=== PATIENT | male | born 1955 | race African-American/Black ===

== ENCOUNTER 2017-08-26 08:31 | Inpatient (IN) | payer OTHER ==
[~2017-08-26] VITALS: Ht 170.2 cm; Wt 74.2 kg
[~2017-08-26 08:31] MED LIST: ASPI-556 PO; FLUT1DIS IH; LOVA20TA3 PO; MONT10TA21 PO; MULT-1259 PO; SIMV-260 PO; TIOT185 IH
[2017-08-26] MEDS ORDERED: SIME80 PO (08:53)
[2017-08-26] MEDS ORDERED: IPRA4AER IH (09:01)
[2017-08-26] MEDS ORDERED: OMEP20 PO (09:01)
[2017-08-26] MEDS ORDERED: FLUT16H NASAL (09:01)
[2017-08-26] MEDS ORDERED: ONDA4 PO (09:01)
[2017-08-26] MEDS ORDERED: D-ME118S13 PO (09:01)
[2017-08-26] MEDS ORDERED: ATOR20TA86 PO (09:01)
[2017-08-26] MEDS ORDERED: FLUT1AER5 IH (09:01)
[2017-08-26 09:38] LABS: BASOPHILS % (AUTO) 0.6 % (0.0-2.0); EOSINOPHILS % (AUTO) 0.9 % (1.0-6.0); HEMATOCRIT 41.4 % (41-53); HEMOGLOBIN 13.7 g/dL (13.5-17.5); LYMPHOCYTES % (AUTO) 9.7 % (22.0-44.0); MEAN CORPUSCULAR HEMOGLOBIN 28.1 pg (26.0-34.0); MEAN CORPUSCULAR HGB CONC 33.1 G/dL (31.0-37.0); MEAN CORPUSCULAR VOLUME 85 fL (80-100); MONOCYTES # (AUTO) 0.5 K/uL (0.1-1.0); MONOCYTES % (AUTO) 5.2 % (2.0-9.0); NEUTROPHILS # (AUTO) 8.6 K/uL (1.8-7.7); NEUTROPHILS % (AUTO) 83.6 % (40.0-70.0); PLATELET COUNT (AUTO) 210 K/uL (150-450); RED BLOOD CELL COUNT(AUTO) 4.87 MIL/uL (4.50-5.90); RED CELL DISTRIBUTION WIDTH 16.6 % (11.5-14.5)
[2017-08-26 09:39] LABS: ANION GAP 5 mmol/L (8-16); CALCIUM, TOTAL 8.9 mg/dL (8.8-10.5); CARBON DIOXIDE 30 mmol/L (22-29); CHLORIDE 103 mmol/L (98-107); CREATININE 0.97 mg/dL (0.60-1.30); GLOMERULAR FILTR. RATE CALC > 60 mL/min (>60); GLUCOSE,RANDOM 98 mg/dL (70-110); POTASSIUM 4.2 mmol/L (3.5-5.1); SODIUM SERUM 138 mmol/L (136-145); UREA NITROGEN, BLOOD 8 mg/dL (7-18)
[2017-08-26 09:58] LABS: B-TYPE NATRIURETIC PEPTIDE 27 pg/mL (0-100)
[2017-08-26 10:03] LABS: ALANINE AMINOTRANSFERASE 23 U/L (12-78); ALBUMIN 3.5 g/dL (3.4-5.0); ALKALINE PHOSPHATASE 91 U/L (46-116); ASPARTATE AMINOTRANSFERASE 16 U/L (15-37); BILIRUBIN,TOTAL 0.2 mg/dL (0.1-1.0); CREATINE KINASE MB 1.1 ng/mL (0-5); CREATINE KINASE, TOTAL 82 U/L (39-308); TOTAL PROTEIN, SERUM 7.1 g/dL (6.4-8.2)
[2017-08-26] MEDS ORDERED: ONDANSETRON HCL 4 MG/2 ML VIAL IVP PRN ×2 (13:00→14:30)
[2017-08-26] MEDS ORDERED: ACETAMINOPHEN 325 MG TABLET PO PRN (13:00)
[2017-08-26 13:19] LABS: APPEARANCE,URINE CLEAR (CLEAR); BILIRUBIN,URINE NEGATIVE (NEGATIVE); GLUCOSE, URINE (UA) NEGATIVE (NEGATIVE); KETONES,URINE NEGATIVE (NEGATIVE); LEUKOCYTE ESTERASE ,URINE NEGATIVE (NEGATIVE); NITRATE,URINE NEGATIVE (NEGATIVE); PROTEIN,URINE NEGATIVE (NEGATIVE); UROBILINOGEN,URINE 0.2 mg/dL (<=1.0)
[2017-08-26 13:27] LABS: OCCULT BLOOD,URINE NEGATIVE (NEGATIVE)
[2017-08-26] MEDS ORDERED: MORPHINE SULFATE 4 MG/ML SYRINGE IVP PRN (14:30)
[2017-08-26] MEDS ORDERED: BISACODYL 10 MG RECTAL RECTAL SUPPOSITORY PR PRN (14:30)
[2017-08-26] MEDS ORDERED: ZOLPIDEM TARTRATE 5 MG TABLET PO PRN (14:30)
[2017-08-26 14:39] VITALS: BP 126/62
[2017-08-26 15:45] VITALS: BP 122/81
[2017-08-26] MEDS: BENZONATATE 100 MG CAPSULE PO SCH ×2 (15:47→20:28)
[2017-08-26] MEDS: HEPARIN SODIUM,PORCINE 5,000 UNITS/ML VIAL SQ SCH ×2 (15:47→23:51)
[2017-08-26] MEDS ORDERED: AZITHROMYCIN 500 MG/NS 250 ML IV SCH (16:00)
[2017-08-26] MEDS: ALBUTEROL SULFATE 2.5 MG/0.5 ML NEB SOLUTION NEB PRN (16:16)
[2017-08-26] MEDS: IPRATROPIUM BROMIDE 0.5 MG/2.5 ML NEB SOLUTION NEB PRN (16:17)
[2017-08-26] MEDS: ACETAMINOPHEN 325 MG TABLET PO PRN ×2 (17:10→20:34)
[2017-08-26] MEDS: MethylPREDNISolone SOD SUCC 125 MG/2 ML VIAL IVP SCH (17:13)
[2017-08-26] MEDS: SIMETHICONE 80 MG CHEWABLE TABLET PO SCH ×2 (17:13→23:51)
[2017-08-26 19:41] VITALS: BP 104/65
[2017-08-26] MEDS: ALBUTEROL SULFATE 2.5 MG/0.5 ML NEB SOLUTION NEB SCH (20:03)
[2017-08-26] MEDS: IPRATROPIUM BROMIDE 0.5 MG/2.5 ML NEB SOLUTION NEB SCH (20:03)
[2017-08-26] MEDS: FLUTICASONE/SALMETEROL 250 MCG-50 MCG/INH DISKUS INHALER [28] IH SCH (20:27)
[2017-08-26] MEDS: DOCUSATE SODIUM 100 MG CAPSULE PO SCH (20:27)
[2017-08-26] MEDS: GuaiFENesin SR 600 MG ER TABLET PO SCH (20:27)
[2017-08-26] MEDS: ATORVASTATIN CALCIUM 20 MG TABLET PO SCH (20:41)
[2017-08-27] VITALS (7 sets, daily range): BP systolic 106–144; BP diastolic 67–96
[2017-08-27] MEDS: IPRATROPIUM BROMIDE 0.5 MG/2.5 ML NEB SOLUTION NEB SCH ×4 (02:37→20:24)
[2017-08-27] MEDS: ALBUTEROL SULFATE 2.5 MG/0.5 ML NEB SOLUTION NEB SCH ×4 (02:37→20:24)
[2017-08-27] MEDS: SIMETHICONE 80 MG CHEWABLE TABLET PO SCH ×3 (05:45→18:11)
[2017-08-27] MEDS: MethylPREDNISolone SOD SUCC 125 MG/2 ML VIAL IVP SCH ×4 (05:52→18:11)
[2017-08-27 06:53] LABS: EOSINOPHILS % (AUTO) 0 % (1.0-6.0); HEMATOCRIT 41.3 % (41-53); HEMOGLOBIN 13.8 g/dL (13.5-17.5); LYMPHOCYTES # (AUTO) 0.4 K/uL (1.0-4.8); MEAN CORPUSCULAR HEMOGLOBIN 28.3 pg (26.0-34.0); MEAN CORPUSCULAR HGB CONC 33.3 G/dL (31.0-37.0); MEAN CORPUSCULAR VOLUME 85 fL (80-100); MONOCYTES # (AUTO) 0.1 K/uL (0.1-1.0); MONOCYTES % (AUTO) 1.2 % (2.0-9.0); NEUTROPHILS # (AUTO) 8.3 K/uL (1.8-7.7); PLATELET COUNT (AUTO) 224 K/uL (150-450); RED BLOOD CELL COUNT(AUTO) 4.85 MIL/uL (4.50-5.90)
[2017-08-27 07:00] LABS: NEUTROPHILS % (AUTO) 94.8 % (40.0-70.0)
[2017-08-27 07:08] LABS: ANION GAP 12 mmol/L (8-16); CALCIUM, TOTAL 9.7 mg/dL (8.8-10.5); CARBON DIOXIDE 30 mmol/L (22-29); CHLORIDE 99 mmol/L (98-107); CREATININE 0.95 mg/dL (0.60-1.30); GLOMERULAR FILTR. RATE CALC > 60 mL/min (>60); GLUCOSE,RANDOM 140 mg/dL (70-110); SODIUM SERUM 141 mmol/L (136-145); UREA NITROGEN, BLOOD 11 mg/dL (7-18)
[2017-08-27] MEDS: FLUTICASONE PROPIONATE 50 MCG/SPRAY 16 GM NASAL SPRAY NASAL SCH (08:34)
[2017-08-27] MEDS: MONTELUKAST SODIUM 10 MG TABLET PO SCH (08:34)
[2017-08-27] MEDS: FLUTICASONE/SALMETEROL 250 MCG-50 MCG/INH DISKUS INHALER [28] IH SCH ×2 (08:34→20:24)
[2017-08-27] MEDS: HEPARIN SODIUM,PORCINE 5,000 UNITS/ML VIAL SQ SCH ×2 (08:34→16:23)
[2017-08-27] MEDS: BENZONATATE 100 MG CAPSULE PO SCH ×3 (08:35→20:17)
[2017-08-27] MEDS: PANTOPRAZOLE SODIUM 40 MG DR TABLET PO SCH (08:35)
[2017-08-27] MEDS: ASPIRIN 81 MG EC TABLET PO SCH (08:35)
[2017-08-27] MEDS: DOCUSATE SODIUM 100 MG CAPSULE PO SCH ×2 (08:35→20:17)
[2017-08-27] MEDS: GuaiFENesin SR 600 MG ER TABLET PO SCH ×2 (08:36→20:17)
[2017-08-27] MEDS ORDERED: SIMVASTATIN 20 MG TABLET PO SCH (09:00)
[2017-08-27] MEDS ORDERED: ATORVASTATIN CALCIUM 20 MG TABLET PO SCH (09:00)
[2017-08-27] MEDS: ACETAMINOPHEN 325 MG TABLET PO PRN (10:56)
[2017-08-27] MEDS ORDERED: BENZOCAINE/MENTHOL LOZENGE PO PRN (11:30)
[2017-08-27] MEDS ORDERED: HYDROCODONE/CHLORPHEN POLIS 10-8 MG/5 ML ORAL.SYG PO PRN (11:30)
[2017-08-27] MEDS: MAGNESIUM HYDROXIDE SUSPENSION 30 ML UDCUP PO PRN (12:38)
[2017-08-27] MEDS: IPRATROPIUM BROMIDE 0.5 MG/2.5 ML NEB SOLUTION NEB PRN (12:53)
[2017-08-27] MEDS: ALBUTEROL SULFATE 2.5 MG/0.5 ML NEB SOLUTION NEB PRN (12:53)
[2017-08-27] MEDS: BENZOCAINE/MENTHOL LOZENGE PO PRN (20:17)
[2017-08-27] MEDS: ATORVASTATIN CALCIUM 20 MG TABLET PO SCH (20:17)
[2017-08-28] MEDS: MethylPREDNISolone SOD SUCC 125 MG/2 ML VIAL IVP SCH ×4 (00:09→17:04)
[2017-08-28] MEDS: SIMETHICONE 80 MG CHEWABLE TABLET PO SCH ×4 (00:10→17:04)
[2017-08-28] MEDS: HEPARIN SODIUM,PORCINE 5,000 UNITS/ML VIAL SQ SCH ×3 (00:14→15:20)
[2017-08-28] MEDS: ALBUTEROL SULFATE 2.5 MG/0.5 ML NEB SOLUTION NEB SCH ×4 (02:27→20:25)
[2017-08-28] MEDS: IPRATROPIUM BROMIDE 0.5 MG/2.5 ML NEB SOLUTION NEB SCH ×4 (02:27→20:25)
[2017-08-28 05:03] VITALS: BP 126/75
[2017-08-28] MEDS: BENZOCAINE/MENTHOL LOZENGE PO PRN (05:34)
[2017-08-28 06:01] LABS: BASOPHILS % (AUTO) 0.1 % (0.0-2.0); EOSINOPHILS % (AUTO) 0 % (1.0-6.0); HEMOGLOBIN 13.8 g/dL (13.5-17.5); LYMPHOCYTES # (AUTO) 0.4 K/uL (1.0-4.8); LYMPHOCYTES % (AUTO) 2.2 % (22.0-44.0); MEAN CORPUSCULAR HEMOGLOBIN 28.5 pg (26.0-34.0); MEAN CORPUSCULAR HGB CONC 33.6 G/dL (31.0-37.0); MEAN CORPUSCULAR VOLUME 85 fL (80-100); MONOCYTES # (AUTO) 0.6 K/uL (0.1-1.0); MONOCYTES % (AUTO) 3.4 % (2.0-9.0); NEUTROPHILS # (AUTO) 16.6 K/uL (1.8-7.7); PLATELET COUNT (AUTO) 221 K/uL (150-450); RED BLOOD CELL COUNT(AUTO) 4.84 MIL/uL (4.50-5.90); RED CELL DISTRIBUTION WIDTH 16.3 % (11.5-14.5)
[2017-08-28 06:44] LABS: NEUTROPHILS % (AUTO) 94.3 % (40.0-70.0)
[2017-08-28 07:07] VITALS: BP 125/78
[2017-08-28] MEDS: FLUTICASONE/SALMETEROL 250 MCG-50 MCG/INH DISKUS INHALER [28] IH SCH ×2 (08:55→20:01)
[2017-08-28] MEDS: GuaiFENesin SR 600 MG ER TABLET PO SCH ×2 (08:56→20:02)
[2017-08-28] MEDS: PANTOPRAZOLE SODIUM 40 MG DR TABLET PO SCH (08:56)
[2017-08-28] MEDS: ASPIRIN 81 MG EC TABLET PO SCH (08:56)
[2017-08-28] MEDS: BENZONATATE 100 MG CAPSULE PO SCH ×3 (08:56→20:02)
[2017-08-28] MEDS: FLUTICASONE PROPIONATE 50 MCG/SPRAY 16 GM NASAL SPRAY NASAL SCH (08:58)
[2017-08-28] MEDS: MONTELUKAST SODIUM 10 MG TABLET PO SCH (08:58)
[2017-08-28] MEDS: DOCUSATE SODIUM 100 MG CAPSULE PO SCH ×2 (08:59→20:01)
[2017-08-28] MEDS: ACETAMINOPHEN 325 MG TABLET PO PRN (09:19)
[2017-08-28 11:22] VITALS: BP 118/72
[2017-08-28] MEDS: MAGNESIUM HYDROXIDE SUSPENSION 30 ML UDCUP PO PRN (13:23)
[2017-08-28 15:26] VITALS: BP 134/77
[2017-08-28] MEDS: HYDROCODONE/ACETAMINOPHEN 5-325 MG TABLET PO PRN (15:35)
[2017-08-28 19:50] VITALS: BP 120/73
[2017-08-28] MEDS: ATORVASTATIN CALCIUM 20 MG TABLET PO SCH (20:01)
[2017-08-28] MEDS: BUDESONIDE 0.5 MG/2 ML NEB SOLUTION NEB SCH (20:26)
[2017-08-28 23:17] VITALS: BP 126/77
[2017-08-29] MEDS: SIMETHICONE 80 MG CHEWABLE TABLET PO SCH ×4 (00:05→17:49)
[2017-08-29] MEDS: MethylPREDNISolone SOD SUCC 125 MG/2 ML VIAL IVP SCH ×2 (00:07→06:11)
[2017-08-29] MEDS: ALBUTEROL SULFATE 2.5 MG/0.5 ML NEB SOLUTION NEB SCH ×4 (02:36→18:32)
[2017-08-29] MEDS: IPRATROPIUM BROMIDE 0.5 MG/2.5 ML NEB SOLUTION NEB SCH ×4 (02:36→18:32)
[2017-08-29 04:50] VITALS: BP 115/74
[2017-08-29] MEDS: BENZOCAINE/MENTHOL LOZENGE PO PRN (05:20)
[2017-08-29 06:30] LABS: EOSINOPHILS % (AUTO) 0 % (1.0-6.0); HEMATOCRIT 39.2 % (41-53); HEMOGLOBIN 12.9 g/dL (13.5-17.5); LYMPHOCYTES # (AUTO) 0.3 K/uL (1.0-4.8); LYMPHOCYTES % (AUTO) 1.9 % (22.0-44.0); MEAN CORPUSCULAR HEMOGLOBIN 27.9 pg (26.0-34.0); MEAN CORPUSCULAR HGB CONC 32.9 G/dL (31.0-37.0); MEAN CORPUSCULAR VOLUME 85 fL (80-100); MONOCYTES # (AUTO) 0.6 K/uL (0.1-1.0); MONOCYTES % (AUTO) 3.8 % (2.0-9.0); PLATELET COUNT (AUTO) 214 K/uL (150-450); RED BLOOD CELL COUNT(AUTO) 4.63 MIL/uL (4.50-5.90); RED CELL DISTRIBUTION WIDTH 16.4 % (11.5-14.5)
[2017-08-29 06:46] LABS: NEUTROPHILS % (AUTO) 94.3 % (40.0-70.0)
[2017-08-29 07:19] VITALS: BP 122/66
[2017-08-29] MEDS: BUDESONIDE 0.5 MG/2 ML NEB SOLUTION NEB SCH ×2 (07:26→22:05)
[2017-08-29] MEDS: HEPARIN SODIUM,PORCINE 5,000 UNITS/ML VIAL SQ SCH ×3 (08:04→16:13)
[2017-08-29] MEDS: FLUTICASONE PROPIONATE 50 MCG/SPRAY 16 GM NASAL SPRAY NASAL SCH (08:05)
[2017-08-29] MEDS: DOCUSATE SODIUM 100 MG CAPSULE PO SCH ×2 (08:05→20:57)
[2017-08-29] MEDS: FLUTICASONE/SALMETEROL 250 MCG-50 MCG/INH DISKUS INHALER [28] IH SCH ×2 (08:05→20:56)
[2017-08-29] MEDS: ASPIRIN 81 MG EC TABLET PO SCH (08:05)
[2017-08-29] MEDS: PANTOPRAZOLE SODIUM 40 MG DR TABLET PO SCH (08:05)
[2017-08-29] MEDS: BENZONATATE 100 MG CAPSULE PO SCH ×3 (08:06→20:57)
[2017-08-29] MEDS: GuaiFENesin SR 600 MG ER TABLET PO SCH ×2 (08:06→20:57)
[2017-08-29] MEDS: MONTELUKAST SODIUM 10 MG TABLET PO SCH (08:06)
[2017-08-29 10:12] LABS: PLATELET MORPHOLOGY COMMENT GIANT PLTS PRESENT
[2017-08-29 11:38] VITALS: BP 142/86
[2017-08-29] MEDS: MethylPREDNISolone SOD SUCC 40 MG/ML VIAL IVP SCH ×2 (12:32→17:49)
[2017-08-29 15:22] VITALS: BP 127/71
[2017-08-29] MEDS: PROMETHAZINE HCL/D-METHORPHAN HB 5 ML ORAL.SYG PO PRN (17:49)
[2017-08-29 20:13] VITALS: BP 111/74
[2017-08-29] MEDS: ATORVASTATIN CALCIUM 20 MG TABLET PO SCH (20:56)
[2017-08-29] MEDS: IPRATROPIUM BROMIDE 0.5 MG/2.5 ML NEB SOLUTION NEB PRN (22:05)
[2017-08-29] MEDS: ALBUTEROL SULFATE 2.5 MG/0.5 ML NEB SOLUTION NEB PRN (22:05)
[2017-08-30] VITALS (7 sets, daily range): BP systolic 117–136; BP diastolic 65–86
[2017-08-30] MEDS: MethylPREDNISolone SOD SUCC 40 MG/ML VIAL IVP SCH ×5 (00:01→23:13)
[2017-08-30] MEDS: SIMETHICONE 80 MG CHEWABLE TABLET PO SCH ×5 (00:01→23:14)
[2017-08-30] MEDS: HEPARIN SODIUM,PORCINE 5,000 UNITS/ML VIAL SQ SCH ×4 (00:01→23:26)
[2017-08-30] MEDS: ALBUTEROL SULFATE 2.5 MG/0.5 ML NEB SOLUTION NEB SCH ×4 (02:00→19:21)
[2017-08-30] MEDS: IPRATROPIUM BROMIDE 0.5 MG/2.5 ML NEB SOLUTION NEB SCH ×4 (02:00→19:21)
[2017-08-30] MEDS: BUDESONIDE 0.5 MG/2 ML NEB SOLUTION NEB SCH ×2 (07:54→19:21)
[2017-08-30] MEDS: FLUTICASONE PROPIONATE 50 MCG/SPRAY 16 GM NASAL SPRAY NASAL SCH (08:25)
[2017-08-30] MEDS: FLUTICASONE/SALMETEROL 250 MCG-50 MCG/INH DISKUS INHALER [28] IH SCH ×2 (08:25→21:24)
[2017-08-30] MEDS: PANTOPRAZOLE SODIUM 40 MG DR TABLET PO SCH (08:26)
[2017-08-30] MEDS: DOCUSATE SODIUM 100 MG CAPSULE PO SCH ×2 (08:27→21:24)
[2017-08-30] MEDS: GuaiFENesin SR 600 MG ER TABLET PO SCH ×2 (08:27→21:24)
[2017-08-30] MEDS: ASPIRIN 81 MG EC TABLET PO SCH (08:27)
[2017-08-30] MEDS: MONTELUKAST SODIUM 10 MG TABLET PO SCH (08:27)
[2017-08-30] MEDS: BENZONATATE 100 MG CAPSULE PO SCH ×3 (08:34→21:24)
[2017-08-30] MEDS ORDERED: SODIUM CHLORIDE 0.9% 100 ML ONE (14:22)
[2017-08-30] MEDS ORDERED: IOVERSOL 350 MG/ML 100 ML VIAL ONE (14:23)
[2017-08-30 16:02] LABS: ABG CARBOXYHEMOGLOBIN 1.6 % (0.0-1.5); ABG OXYHEMOGLOBIN 96.6 % (94.0-100.0); SOURCE, BLOOD GAS ARTERIAL; TEMPERATURE, FAHRENHEIT, BG 98.6 FAHREN (96.0-98.6)
[2017-08-30 16:05] LABS: ABG A-A DIFF O2 93.9 mmHg (10-20.0); ABG HCO3 27.9 mmol/L (22.0-26.0); ABG METHEMOGLOBIN 0.7 % (0.0-1.5); ABG OXYGEN CONTENT 20.2 mL/dL (15.0-23.0); ABG OXYGEN SATURATION 98.9 % (95.0-98.0); ABG PCO2 51 mmHg (35-45); ABG PH 7.386 (7.35-7.450); ABG TOTAL HEMOGLOBIN 14.7 G/dL (12.0-18.0); O2 DEVICE,BLOOD GAS AEROSOL MASK (ROOM AIR); PO2, ARTERIAL BG 132.4 mmHg (79.0-87.0); SITE, BLOOD GAS RT RADIAL
[2017-08-30] MEDS: ATORVASTATIN CALCIUM 20 MG TABLET PO SCH (21:24)
[2017-08-31] MEDS: IPRATROPIUM BROMIDE 0.5 MG/2.5 ML NEB SOLUTION NEB SCH ×4 (02:21→20:12)
[2017-08-31] MEDS: ALBUTEROL SULFATE 2.5 MG/0.5 ML NEB SOLUTION NEB SCH ×4 (02:21→20:12)
[2017-08-31 05:06] VITALS: BP 133/93
[2017-08-31] MEDS: SIMETHICONE 80 MG CHEWABLE TABLET PO SCH ×4 (06:15→23:20)
[2017-08-31] MEDS: MethylPREDNISolone SOD SUCC 40 MG/ML VIAL IVP SCH ×2 (06:15→12:00)
[2017-08-31 07:37] VITALS: BP 138/69
[2017-08-31] MEDS: BUDESONIDE 0.5 MG/2 ML NEB SOLUTION NEB SCH ×2 (08:22→20:12)
[2017-08-31] MEDS: BENZONATATE 100 MG CAPSULE PO SCH ×3 (08:24→20:02)
[2017-08-31] MEDS: PANTOPRAZOLE SODIUM 40 MG DR TABLET PO SCH (08:24)
[2017-08-31] MEDS: MONTELUKAST SODIUM 10 MG TABLET PO SCH (08:24)
[2017-08-31] MEDS: FLUTICASONE PROPIONATE 50 MCG/SPRAY 16 GM NASAL SPRAY NASAL SCH (08:24)
[2017-08-31] MEDS: HEPARIN SODIUM,PORCINE 5,000 UNITS/ML VIAL SQ SCH ×2 (08:24→16:00)
[2017-08-31] MEDS: DOCUSATE SODIUM 100 MG CAPSULE PO SCH ×2 (08:24→20:02)
[2017-08-31] MEDS: FLUTICASONE/SALMETEROL 250 MCG-50 MCG/INH DISKUS INHALER [28] IH SCH ×2 (08:24→21:37)
[2017-08-31] MEDS: ASPIRIN 81 MG EC TABLET PO SCH (08:24)
[2017-08-31] MEDS: GuaiFENesin SR 600 MG ER TABLET PO SCH ×2 (08:24→20:01)
[2017-08-31 11:49] VITALS: BP 140/79
[2017-08-31 15:36] VITALS: BP 134/87
[2017-08-31] MEDS: MethylPREDNISolone SOD SUCC 125 MG/2 ML VIAL IVP SCH ×2 (17:26→23:19)
[2017-08-31] MEDS: HYDROCODONE/ACETAMINOPHEN 5-325 MG TABLET PO PRN (19:53)
[2017-08-31 19:55] VITALS: BP 128/96
[2017-08-31] MEDS: ATORVASTATIN CALCIUM 20 MG TABLET PO SCH (20:01)
[2017-08-31] MEDS: OXYGEN THERAPY IH SCH (20:12)
[2017-08-31 23:54] VITALS: BP 135/94
[2017-09-01] MEDS: IPRATROPIUM BROMIDE 0.5 MG/2.5 ML NEB SOLUTION NEB SCH ×4 (02:21→19:32)
[2017-09-01] MEDS: ALBUTEROL SULFATE 2.5 MG/0.5 ML NEB SOLUTION NEB SCH ×4 (02:21→19:32)
[2017-09-01 05:11] VITALS: BP 134/88
[2017-09-01] MEDS: MethylPREDNISolone SOD SUCC 125 MG/2 ML VIAL IVP SCH ×4 (06:11→23:27)
[2017-09-01] MEDS: SIMETHICONE 80 MG CHEWABLE TABLET PO SCH ×4 (06:11→23:27)
[2017-09-01 06:22] LABS: EOSINOPHILS % (AUTO) 0 % (1.0-6.0); HEMATOCRIT 42.3 % (41-53); HEMOGLOBIN 13.7 g/dL (13.5-17.5); LYMPHOCYTES # (AUTO) 0.3 K/uL (1.0-4.8); MEAN CORPUSCULAR HEMOGLOBIN 27.8 pg (26.0-34.0); MEAN CORPUSCULAR HGB CONC 32.5 G/dL (31.0-37.0); MEAN CORPUSCULAR VOLUME 86 fL (80-100); MONOCYTES # (AUTO) 0.8 K/uL (0.1-1.0); MONOCYTES % (AUTO) 5.8 % (2.0-9.0); NEUTROPHILS # (AUTO) 13.2 K/uL (1.8-7.7); PLATELET COUNT (AUTO) 232 K/uL (150-450); RED BLOOD CELL COUNT(AUTO) 4.94 MIL/uL (4.50-5.90); RED CELL DISTRIBUTION WIDTH 16.1 % (11.5-14.5)
[2017-09-01 06:24] LABS: NEUTROPHILS % (AUTO) 92.2 % (40.0-70.0)
[2017-09-01 06:33] LABS: ANION GAP 0 mmol/L (8-16); CALCIUM, TOTAL 9.1 mg/dL (8.8-10.5); CARBON DIOXIDE 37 mmol/L (22-29); CHLORIDE 99 mmol/L (98-107); CREATININE 0.99 mg/dL (0.60-1.30); GLOMERULAR FILTR. RATE CALC > 60 mL/min (>60); GLUCOSE,RANDOM 124 mg/dL (70-110); POTASSIUM 4.9 mmol/L (3.5-5.1); SODIUM SERUM 136 mmol/L (136-145); UREA NITROGEN, BLOOD 26 mg/dL (7-18)
[2017-09-01 07:07] LABS: INR 1.1 (0.9-1.1); PROTHROMBIN TIME 11.1 SEC (9.4-11.6)
[2017-09-01] MEDS: BUDESONIDE 0.5 MG/2 ML NEB SOLUTION NEB SCH ×2 (07:11→19:32)
[2017-09-01 07:38] VITALS: BP 140/78
[2017-09-01] MEDS: BENZONATATE 100 MG CAPSULE PO SCH ×3 (09:01→20:33)
[2017-09-01] MEDS: HEPARIN SODIUM,PORCINE 5,000 UNITS/ML VIAL SQ SCH ×4 (09:01→23:27)
[2017-09-01] MEDS: OXYGEN THERAPY IH SCH ×2 (09:01→20:33)
[2017-09-01] MEDS: ASPIRIN 81 MG EC TABLET PO SCH (09:01)
[2017-09-01] MEDS: FLUTICASONE/SALMETEROL 250 MCG-50 MCG/INH DISKUS INHALER [28] IH SCH ×2 (09:01→20:33)
[2017-09-01] MEDS: DOCUSATE SODIUM 100 MG CAPSULE PO SCH ×2 (09:01→20:33)
[2017-09-01] MEDS: FLUTICASONE PROPIONATE 50 MCG/SPRAY 16 GM NASAL SPRAY NASAL SCH (09:02)
[2017-09-01] MEDS: GuaiFENesin SR 600 MG ER TABLET PO SCH ×2 (09:02→20:33)
[2017-09-01] MEDS: PANTOPRAZOLE SODIUM 40 MG DR TABLET PO SCH (09:07)
[2017-09-01] MEDS: MONTELUKAST SODIUM 10 MG TABLET PO SCH (09:07)
[2017-09-01 11:10] VITALS: BP 136/81
[2017-09-01 15:26] VITALS: BP 135/94
[2017-09-01 19:52] VITALS: BP 111/77
[2017-09-01] MEDS: ATORVASTATIN CALCIUM 20 MG TABLET PO SCH (20:33)
[2017-09-01] MEDS: PROMETHAZINE HCL/D-METHORPHAN HB 5 ML ORAL.SYG PO PRN (20:33)
[2017-09-02] VITALS (7 sets, daily range): BP systolic 119–149; BP diastolic 70–87
[2017-09-02] MEDS: IPRATROPIUM BROMIDE 0.5 MG/2.5 ML NEB SOLUTION NEB SCH ×4 (02:43→20:19)
[2017-09-02] MEDS: ALBUTEROL SULFATE 2.5 MG/0.5 ML NEB SOLUTION NEB SCH ×4 (02:43→20:19)
[2017-09-02] MEDS: MethylPREDNISolone SOD SUCC 125 MG/2 ML VIAL IVP SCH ×3 (05:43→18:38)
[2017-09-02] MEDS: SIMETHICONE 80 MG CHEWABLE TABLET PO SCH ×3 (05:43→18:42)
[2017-09-02 07:14] LABS: EOSINOPHILS % (AUTO) 0 % (1.0-6.0); HEMATOCRIT 43.9 % (41-53); HEMOGLOBIN 14.5 g/dL (13.5-17.5); LYMPHOCYTES # (AUTO) 0.3 K/uL (1.0-4.8); MEAN CORPUSCULAR HEMOGLOBIN 28.3 pg (26.0-34.0); MEAN CORPUSCULAR HGB CONC 32.9 G/dL (31.0-37.0); MEAN CORPUSCULAR VOLUME 86 fL (80-100); MONOCYTES # (AUTO) 0.7 K/uL (0.1-1.0); MONOCYTES % (AUTO) 4.5 % (2.0-9.0); NEUTROPHILS # (AUTO) 14.5 K/uL (1.8-7.7); PLATELET COUNT (AUTO) 241 K/uL (150-450); RED BLOOD CELL COUNT(AUTO) 5.11 MIL/uL (4.50-5.90); RED CELL DISTRIBUTION WIDTH 16.5 % (11.5-14.5)
[2017-09-02 07:32] LABS: NEUTROPHILS % (AUTO) 93.5 % (40.0-70.0)
[2017-09-02] MEDS: HEPARIN SODIUM,PORCINE 5,000 UNITS/ML VIAL SQ SCH ×3 (08:00→16:00)
[2017-09-02] MEDS: FLUTICASONE PROPIONATE 50 MCG/SPRAY 16 GM NASAL SPRAY NASAL SCH (08:56)
[2017-09-02] MEDS: FLUTICASONE/SALMETEROL 250 MCG-50 MCG/INH DISKUS INHALER [28] IH SCH ×2 (08:56→21:29)
[2017-09-02] MEDS: DOCUSATE SODIUM 100 MG CAPSULE PO SCH ×2 (08:57→21:29)
[2017-09-02] MEDS: ASPIRIN 81 MG EC TABLET PO SCH (08:57)
[2017-09-02] MEDS: MONTELUKAST SODIUM 10 MG TABLET PO SCH (08:57)
[2017-09-02] MEDS: PANTOPRAZOLE SODIUM 40 MG DR TABLET PO SCH (08:57)
[2017-09-02] MEDS: GuaiFENesin SR 600 MG ER TABLET PO SCH ×2 (08:57→21:29)
[2017-09-02] MEDS: BENZONATATE 100 MG CAPSULE PO SCH ×3 (08:58→21:29)
[2017-09-02] MEDS: OXYGEN THERAPY IH SCH ×2 (12:12→21:29)
[2017-09-02] MEDS: BUDESONIDE 0.5 MG/2 ML NEB SOLUTION NEB SCH ×2 (13:35→20:19)
[2017-09-02] MEDS: ATORVASTATIN CALCIUM 20 MG TABLET PO SCH (21:29)
[2017-09-03] MEDS: SIMETHICONE 80 MG CHEWABLE TABLET PO SCH ×5 (00:06→23:27)
[2017-09-03] MEDS: MethylPREDNISolone SOD SUCC 125 MG/2 ML VIAL IVP SCH ×5 (00:06→23:27)
[2017-09-03] MEDS: ALBUTEROL SULFATE 2.5 MG/0.5 ML NEB SOLUTION NEB SCH ×4 (03:21→20:02)
[2017-09-03] MEDS: IPRATROPIUM BROMIDE 0.5 MG/2.5 ML NEB SOLUTION NEB SCH ×4 (03:21→20:02)
[2017-09-03 05:00] VITALS: BP 132/79
[2017-09-03 06:41] LABS: BASOPHILS % (AUTO) 0.1 % (0.0-2.0); EOSINOPHILS % (AUTO) 0 % (1.0-6.0); HEMATOCRIT 42.5 % (41-53); HEMOGLOBIN 13.9 g/dL (13.5-17.5); LYMPHOCYTES # (AUTO) 0.2 K/uL (1.0-4.8); MEAN CORPUSCULAR HGB CONC 32.6 G/dL (31.0-37.0); MEAN CORPUSCULAR VOLUME 86 fL (80-100); MONOCYTES # (AUTO) 0.9 K/uL (0.1-1.0); MONOCYTES % (AUTO) 5.2 % (2.0-9.0); NEUTROPHILS # (AUTO) 15.9 K/uL (1.8-7.7); PLATELET COUNT (AUTO) 231 K/uL (150-450); RED BLOOD CELL COUNT(AUTO) 4.96 MIL/uL (4.50-5.90); RED CELL DISTRIBUTION WIDTH 16.2 % (11.5-14.5)
[2017-09-03 06:49] LABS: NEUTROPHILS % (AUTO) 93.7 % (40.0-70.0)
[2017-09-03 07:32] VITALS: BP 141/80
[2017-09-03] MEDS: BUDESONIDE 0.5 MG/2 ML NEB SOLUTION NEB SCH ×2 (08:04→20:02)
[2017-09-03] MEDS: DOCUSATE SODIUM 100 MG CAPSULE PO SCH ×2 (08:48→20:24)
[2017-09-03] MEDS: GuaiFENesin SR 600 MG ER TABLET PO SCH ×2 (08:48→20:24)
[2017-09-03] MEDS: BENZOCAINE/MENTHOL LOZENGE PO PRN (08:48)
[2017-09-03] MEDS: MONTELUKAST SODIUM 10 MG TABLET PO SCH (08:48)
[2017-09-03] MEDS: FLUTICASONE PROPIONATE 50 MCG/SPRAY 16 GM NASAL SPRAY NASAL SCH (08:49)
[2017-09-03] MEDS: ASPIRIN 81 MG EC TABLET PO SCH (08:49)
[2017-09-03] MEDS: PANTOPRAZOLE SODIUM 40 MG DR TABLET PO SCH (08:49)
[2017-09-03] MEDS: FLUTICASONE/SALMETEROL 250 MCG-50 MCG/INH DISKUS INHALER [28] IH SCH ×2 (08:49→20:24)
[2017-09-03] MEDS: OXYGEN THERAPY IH SCH ×2 (08:50→20:03)
[2017-09-03] MEDS: HEPARIN SODIUM,PORCINE 5,000 UNITS/ML VIAL SQ SCH ×4 (08:50→23:27)
[2017-09-03] MEDS: BENZONATATE 100 MG CAPSULE PO SCH ×3 (08:51→20:24)
[2017-09-03 11:21] VITALS: BP 139/77
[2017-09-03 15:50] VITALS: BP 137/78
[2017-09-03 19:31] VITALS: BP 123/79
[2017-09-03] MEDS: ATORVASTATIN CALCIUM 20 MG TABLET PO SCH (20:24)
[2017-09-03] MEDS: HYPROMELLOSE 0.5% 15 ML OPHTHALMIC SOLUTION OU PRN (23:27)
[2017-09-04] VITALS (7 sets, daily range): BP systolic 124–160; BP diastolic 80–90
[2017-09-04] MEDS: ALBUTEROL SULFATE 2.5 MG/0.5 ML NEB SOLUTION NEB SCH ×5 (01:58→23:24)
[2017-09-04] MEDS: IPRATROPIUM BROMIDE 0.5 MG/2.5 ML NEB SOLUTION NEB SCH ×4 (01:58→19:28)
[2017-09-04] MEDS: MethylPREDNISolone SOD SUCC 125 MG/2 ML VIAL IVP SCH ×4 (05:49→23:23)
[2017-09-04] MEDS: SIMETHICONE 80 MG CHEWABLE TABLET PO SCH ×4 (05:49→23:23)
[2017-09-04] MEDS: BENZOCAINE/MENTHOL LOZENGE PO PRN ×3 (06:03→17:25)
[2017-09-04] MEDS: BUDESONIDE 0.5 MG/2 ML NEB SOLUTION NEB SCH ×2 (07:38→19:29)
[2017-09-04] MEDS: FLUTICASONE/SALMETEROL 250 MCG-50 MCG/INH DISKUS INHALER [28] IH SCH ×2 (08:42→20:30)
[2017-09-04] MEDS: FLUTICASONE PROPIONATE 50 MCG/SPRAY 16 GM NASAL SPRAY NASAL SCH (08:42)
[2017-09-04] MEDS: HEPARIN SODIUM,PORCINE 5,000 UNITS/ML VIAL SQ SCH ×3 (08:42→23:23)
[2017-09-04] MEDS: DOCUSATE SODIUM 100 MG CAPSULE PO SCH ×2 (08:43→20:30)
[2017-09-04] MEDS: GuaiFENesin SR 600 MG ER TABLET PO SCH ×2 (08:43→20:30)
[2017-09-04] MEDS: ASPIRIN 81 MG EC TABLET PO SCH (08:43)
[2017-09-04] MEDS: BENZONATATE 100 MG CAPSULE PO SCH ×3 (08:44→20:30)
[2017-09-04] MEDS: MONTELUKAST SODIUM 10 MG TABLET PO SCH (08:44)
[2017-09-04] MEDS: PANTOPRAZOLE SODIUM 40 MG DR TABLET PO SCH (08:44)
[2017-09-04] MEDS: HYPROMELLOSE 0.5% 15 ML OPHTHALMIC SOLUTION OU PRN ×5 (08:45→23:38)
[2017-09-04] MEDS: OXYGEN THERAPY IH SCH ×2 (13:11→20:00)
[2017-09-04] MEDS: ATORVASTATIN CALCIUM 20 MG TABLET PO SCH (20:30)
[2017-09-04] MEDS: IPRATROPIUM BROMIDE 0.5 MG/2.5 ML NEB SOLUTION NEB PRN (23:24)
[2017-09-05] MEDS: BENZOCAINE/MENTHOL LOZENGE PO PRN (01:31)
[2017-09-05] MEDS: ALBUTEROL SULFATE 2.5 MG/0.5 ML NEB SOLUTION NEB SCH ×6 (03:01→23:25)
[2017-09-05] MEDS: IPRATROPIUM BROMIDE 0.5 MG/2.5 ML NEB SOLUTION NEB SCH ×6 (03:01→23:25)
[2017-09-05 04:00] VITALS: BP 113/89
[2017-09-05] MEDS: SIMETHICONE 80 MG CHEWABLE TABLET PO SCH ×3 (05:42→18:08)
[2017-09-05] MEDS: MethylPREDNISolone SOD SUCC 125 MG/2 ML VIAL IVP SCH ×3 (05:42→18:08)
[2017-09-05] MEDS: OXYGEN THERAPY IH SCH ×2 (07:29→19:06)
[2017-09-05] MEDS: BUDESONIDE 0.5 MG/2 ML NEB SOLUTION NEB SCH ×2 (07:29→19:06)
[2017-09-05] MEDS: HEPARIN SODIUM,PORCINE 5,000 UNITS/ML VIAL SQ SCH ×2 (09:05→16:00)
[2017-09-05] MEDS: FLUTICASONE PROPIONATE 50 MCG/SPRAY 16 GM NASAL SPRAY NASAL SCH (09:06)
[2017-09-05] MEDS: FLUTICASONE/SALMETEROL 250 MCG-50 MCG/INH DISKUS INHALER [28] IH SCH ×2 (09:06→20:42)
[2017-09-05] MEDS: DOCUSATE SODIUM 100 MG CAPSULE PO SCH ×2 (09:07→20:43)
[2017-09-05] MEDS: PANTOPRAZOLE SODIUM 40 MG DR TABLET PO SCH (09:07)
[2017-09-05] MEDS: MONTELUKAST SODIUM 10 MG TABLET PO SCH (09:07)
[2017-09-05] MEDS: ASPIRIN 81 MG EC TABLET PO SCH (09:07)
[2017-09-05] MEDS: GuaiFENesin SR 600 MG ER TABLET PO SCH ×2 (09:07→20:43)
[2017-09-05] MEDS: BENZONATATE 100 MG CAPSULE PO SCH ×3 (09:08→20:43)
[2017-09-05 09:30] VITALS: BP 135/78
[2017-09-05] MEDS: HYPROMELLOSE 0.5% 15 ML OPHTHALMIC SOLUTION OU PRN ×2 (09:39→15:33)
[2017-09-05] MEDS ORDERED: 0.9% SODIUM CHLORIDE 5 ML NEB SOLUTION NEB ONE (10:23)
[2017-09-05 11:21] VITALS: BP 140/88
[2017-09-05 15:42] VITALS: BP 144/82
[2017-09-05 19:35] VITALS: BP 133/76
[2017-09-05] MEDS: ATORVASTATIN CALCIUM 20 MG TABLET PO SCH (20:43)
[2017-09-05 23:34] VITALS: BP 124/89
[2017-09-06] MEDS: SIMETHICONE 80 MG CHEWABLE TABLET PO SCH ×5 (00:19→23:21)
[2017-09-06] MEDS: MethylPREDNISolone SOD SUCC 125 MG/2 ML VIAL IVP SCH ×3 (00:20→12:21)
[2017-09-06] MEDS: ALBUTEROL SULFATE 2.5 MG/0.5 ML NEB SOLUTION NEB SCH ×6 (03:13→23:05)
[2017-09-06] MEDS: IPRATROPIUM BROMIDE 0.5 MG/2.5 ML NEB SOLUTION NEB SCH ×6 (03:13→23:05)
[2017-09-06 05:02] VITALS: BP 131/70
[2017-09-06] MEDS: HYPROMELLOSE 0.5% 15 ML OPHTHALMIC SOLUTION OU PRN ×4 (05:40→17:35)
[2017-09-06] MEDS: BENZOCAINE/MENTHOL LOZENGE PO PRN ×2 (06:04→15:01)
[2017-09-06 07:30] VITALS: BP 136/67
[2017-09-06] MEDS: OXYGEN THERAPY IH SCH ×2 (07:58→20:03)
[2017-09-06] MEDS: HEPARIN SODIUM,PORCINE 5,000 UNITS/ML VIAL SQ SCH ×4 (08:00→23:23)
[2017-09-06] MEDS: BUDESONIDE 0.5 MG/2 ML NEB SOLUTION NEB SCH ×2 (08:00→19:23)
[2017-09-06] MEDS: DOCUSATE SODIUM 100 MG CAPSULE PO SCH ×2 (08:07→20:02)
[2017-09-06] MEDS: PANTOPRAZOLE SODIUM 40 MG DR TABLET PO SCH (08:07)
[2017-09-06] MEDS: MONTELUKAST SODIUM 10 MG TABLET PO SCH (08:08)
[2017-09-06] MEDS: GuaiFENesin SR 600 MG ER TABLET PO SCH ×2 (08:08→20:02)
[2017-09-06] MEDS: ASPIRIN 81 MG EC TABLET PO SCH (08:08)
[2017-09-06] MEDS: FLUTICASONE PROPIONATE 50 MCG/SPRAY 16 GM NASAL SPRAY NASAL SCH (08:09)
[2017-09-06] MEDS: BENZONATATE 100 MG CAPSULE PO SCH ×3 (08:10→20:02)
[2017-09-06] MEDS: FLUTICASONE/SALMETEROL 250 MCG-50 MCG/INH DISKUS INHALER [28] IH SCH ×2 (09:24→20:02)
[2017-09-06 11:00] VITALS: BP 128/86
[2017-09-06 15:00] VITALS: BP 121/77
[2017-09-06] MEDS ORDERED: PredniSONE 20 MG TABLET PO ONE (15:15)
[2017-09-06 19:17] VITALS: BP 131/74
[2017-09-06] MEDS: ATORVASTATIN CALCIUM 20 MG TABLET PO SCH (20:02)
[2017-09-06 23:36] VITALS: BP 140/74
[2017-09-07] MEDS: ALBUTEROL SULFATE 2.5 MG/0.5 ML NEB SOLUTION NEB SCH ×4 (03:02→15:42)
[2017-09-07] MEDS: IPRATROPIUM BROMIDE 0.5 MG/2.5 ML NEB SOLUTION NEB SCH ×4 (03:02→15:42)
[2017-09-07] MEDS: SIMETHICONE 80 MG CHEWABLE TABLET PO SCH ×3 (06:45→17:53)
[2017-09-07 07:25] VITALS: BP 123/83
[2017-09-07] MEDS: HEPARIN SODIUM,PORCINE 5,000 UNITS/ML VIAL SQ SCH ×2 (08:00→15:48)
[2017-09-07] MEDS: BUDESONIDE 0.5 MG/2 ML NEB SOLUTION NEB SCH (08:01)
[2017-09-07] MEDS: HYPROMELLOSE 0.5% 15 ML OPHTHALMIC SOLUTION OU PRN ×3 (08:08→17:53)
[2017-09-07] MEDS: FLUTICASONE/SALMETEROL 250 MCG-50 MCG/INH DISKUS INHALER [28] IH SCH (08:08)
[2017-09-07] MEDS: ASPIRIN 81 MG EC TABLET PO SCH (08:09)
[2017-09-07] MEDS: BENZONATATE 100 MG CAPSULE PO SCH ×2 (08:09→16:26)
[2017-09-07] MEDS: GuaiFENesin SR 600 MG ER TABLET PO SCH (08:09)
[2017-09-07] MEDS: MONTELUKAST SODIUM 10 MG TABLET PO SCH (08:09)
[2017-09-07] MEDS: DOCUSATE SODIUM 100 MG CAPSULE PO SCH (08:09)
[2017-09-07] MEDS: PANTOPRAZOLE SODIUM 40 MG DR TABLET PO SCH (08:09)
[2017-09-07] MEDS: FLUTICASONE PROPIONATE 50 MCG/SPRAY 16 GM NASAL SPRAY NASAL SCH (08:10)
[2017-09-07] MEDS: BENZOCAINE/MENTHOL LOZENGE PO PRN (08:14)
[2017-09-07] MEDS: OXYGEN THERAPY IH SCH (08:16)
[2017-09-07] MEDS ORDERED: PredniSONE 20 MG TABLET PO SCH (09:00)
[2017-09-07] MEDS ORDERED: PRED5 PO (11:34)
[2017-09-07] MEDS ORDERED: BENZ-51 PO (11:38)
[2017-09-07] MEDS ORDERED: MONT10TA21 PO (11:40)
[2017-09-07] MEDS ORDERED: GUAI600T50 PO (11:40)
[2017-09-07] MEDS ORDERED: BUDE0.5A3 NEB (11:41)
[2017-09-07] MEDS ORDERED: IPRA3AMP4 NEB (11:42)
[2017-09-07 12:00] VITALS: BP 117/74
[2017-09-07 15:24] VITALS: BP 127/74
== END 2017-09-07 18:39 | disposition home health service (06) | DRG 140 ==
LOC: EMS 08:32 → 5S 13:25 → EMS 13:53 → 6N 09-02 17:30
PROVIDERS: ADMIT Internal Medicine; ATTEND Internal Medicine
DX: J44.1 Chronic obstructive pulmonary disease with (acute) exacerbation (principal); Z99.81 Dependence on supplemental oxygen; I10 Essential (primary) hypertension; E78.5 Hyperlipidemia, unspecified; K21.9 Gastro-esophageal reflux disease without esophagitis; D72.829 Elevated white blood cell count, unspecified; R91.1 Solitary pulmonary nodule; E78.00 Pure hypercholesterolemia, unspecified; F17.200 Nicotine dependence, unspecified, uncomplicated; Z79.82 Long term (current) use of aspirin; Z79.899 Other long term (current) drug therapy; Z79.51 Long term (current) use of inhaled steroids
CPT/HCPCS: 71260; 82805; 93005; 93306; 94640; 97162; 99285; J0456; J1644; J2920; J2930; J3535; J7050

== ENCOUNTER 2018-05-22 17:59 | Emergency (ER) | payer OTHER ==
[~2018-05-22] VITALS: Ht 170.2 cm; Wt 75.0 kg
[~2018-05-22 17:59] MED LIST changes: +ATOR20TA86 PO; +BENZ-51 PO; +BUDE0.5A3 NEB; +D-ME118S13 PO; +FLUT16H NASAL; +FLUT1AER5 IH; -FLUT1DIS IH; +GUAI600T50 PO; +IPRA3AMP24 NEB; +IPRA4AER IH; -LOVA20TA3 PO; +OMEP20 PO; +ONDA4 PO; +PRED5 PO; +SIME80 PO
[2018-05-22] MEDS ORDERED: ALBUTEROL SULFATE 2.5 MG/0.5 ML NEB SOLUTION NEB ONE (18:45)
[2018-05-22] MEDS ORDERED: IPRATROPIUM BROMIDE 0.5 MG/2.5 ML NEB SOLUTION NEB ONE (18:45)
[2018-05-22 19:02] LABS: BASOPHILS % (AUTO) 0.7 % (0.0-2.0); EOSINOPHILS % (AUTO) 1.2 % (1.0-6.0); HEMATOCRIT 41.7 % (41-53); HEMOGLOBIN 13.7 g/dL (13.5-17.5); LYMPHOCYTES % (AUTO) 13.4 % (22.0-44.0); MEAN CORPUSCULAR HEMOGLOBIN 28.3 pg (26.0-34.0); MEAN CORPUSCULAR VOLUME 86 fL (80-100); MONOCYTES # (AUTO) 0.7 K/uL (0.1-1.0); MONOCYTES % (AUTO) 9.4 % (2.0-9.0); NEUTROPHILS # (AUTO) 5.8 K/uL (1.8-7.7); NEUTROPHILS % (AUTO) 75.3 % (40.0-70.0); PLATELET COUNT (AUTO) 184 K/uL (150-450); RED BLOOD CELL COUNT(AUTO) 4.86 MIL/uL (4.50-5.90); RED CELL DISTRIBUTION WIDTH 15.5 % (11.5-14.5)
[2018-05-22 19:51] LABS: ANION GAP 6 mmol/L (8-16); CALCIUM, TOTAL 8.9 mg/dL (8.8-10.5); CARBON DIOXIDE 31 mmol/L (22-29); CHLORIDE 101 mmol/L (98-107); CREATININE 0.81 mg/dL (0.60-1.30); GLOMERULAR FILTR. RATE CALC > 60 mL/min (>60); GLUCOSE,RANDOM 111 mg/dL (70-110); POTASSIUM 3.8 mmol/L (3.5-5.1); SODIUM SERUM 138 mmol/L (136-145); UREA NITROGEN, BLOOD 13 mg/dL (7-18)
[2018-05-22 19:55] LABS: ALANINE AMINOTRANSFERASE 32 U/L (12-78); ALBUMIN 3.4 g/dL (3.4-5.0); ALKALINE PHOSPHATASE 73 U/L (46-116); ASPARTATE AMINOTRANSFERASE 24 U/L (15-37); BILIRUBIN,TOTAL 0.3 mg/dL (0.1-1.0); TOTAL PROTEIN, SERUM 6.6 g/dL (6.4-8.2)
[2018-05-22 21:49] VITALS: BP 114/68
== END 2018-05-22 23:11 | disposition home or self-care (01) ==
LOC: EMS 18:01
DX: T17.928A Food in respiratory tract, part unspecified causing other injury, initial encounter (principal); J44.9 Chronic obstructive pulmonary disease, unspecified; E78.00 Pure hypercholesterolemia, unspecified; I10 Essential (primary) hypertension; Z79.82 Long term (current) use of aspirin; X58.XXXA Exposure to other specified factors, initial encounter; Y93.89 Activity, other specified; Y92.89 Other specified places as the place of occurrence of the external cause; Y99.8 Other external cause status
CPT/HCPCS: 94640

== ENCOUNTER 2018-06-04 06:27 | Inpatient (IN) | payer OTHER ==
[~2018-06-04] VITALS: Ht 170.2 cm; Wt 79.0 kg
[~2018-06-04 06:27] MED LIST changes: +ALBU8.5H8 IH; -BENZ-51 PO; -BUDE0.5A3 NEB; +BUDE10.2 IH; +CARAL PO; +CHOL20002 PO; -D-ME118S13 PO; +FLUT100D2 IH; -FLUT16H NASAL; -FLUT1AER5 IH; -GUAI600T50 PO; -IPRA3AMP24 NEB; -ONDA4 PO; -PRED5 PO; -SIME80 PO; -SIMV-260 PO
[2018-06-04 08:01] LABS: EOSINOPHILS % (AUTO) 1.9 % (1.0-6.0); HEMATOCRIT 41.6 % (41-53); HEMOGLOBIN 13.5 g/dL (13.5-17.5); LYMPHOCYTES # (AUTO) 0.9 K/uL (1.0-4.8); LYMPHOCYTES % (AUTO) 13.2 % (22.0-44.0); MEAN CORPUSCULAR HEMOGLOBIN 28.7 pg (26.0-34.0); MEAN CORPUSCULAR HGB CONC 32.6 G/dL (31.0-37.0); MEAN CORPUSCULAR VOLUME 88 fL (80-100); MONOCYTES # (AUTO) 0.9 K/uL (0.1-1.0); MONOCYTES % (AUTO) 12.4 % (2.0-9.0); NEUTROPHILS % (AUTO) 71.5 % (40.0-70.0); PLATELET COUNT (AUTO) 164 K/uL (150-450); RED BLOOD CELL COUNT(AUTO) 4.71 MIL/uL (4.50-5.90); RED CELL DISTRIBUTION WIDTH 15.1 % (11.5-14.5)
[2018-06-04 08:07] LABS: PROTHROMBIN TIME 10.3 SEC (9.4-11.6)
[2018-06-04 08:16] LABS: ANION GAP 5 mmol/L (8-16); CALCIUM, TOTAL 8.6 mg/dL (8.8-10.5); CARBON DIOXIDE 34 mmol/L (22-29); CHLORIDE 104 mmol/L (98-107); CREATININE 0.87 mg/dL (0.60-1.30); GLOMERULAR FILTR. RATE CALC > 60 mL/min (>60); GLUCOSE,RANDOM 96 mg/dL (70-110); POTASSIUM 4.4 mmol/L (3.5-5.1); SODIUM SERUM 143 mmol/L (136-145); UREA NITROGEN, BLOOD 12 mg/dL (7-18)
[2018-06-04 08:24] LABS: B-TYPE NATRIURETIC PEPTIDE 27 pg/mL (0-100)
[2018-06-04 08:30] LABS: ALANINE AMINOTRANSFERASE 26 U/L (12-78); ALBUMIN 3.4 g/dL (3.4-5.0); ALKALINE PHOSPHATASE 88 U/L (46-116); ASPARTATE AMINOTRANSFERASE 21 U/L (15-37); BILIRUBIN,TOTAL 0.3 mg/dL (0.1-1.0); CREATINE KINASE, TOTAL ONLY 169 U/L (39-308); TOTAL PROTEIN, SERUM 6.8 g/dL (6.4-8.2)
[2018-06-04] MEDS ORDERED: ACETAMINOPHEN 325 MG TABLET PO PRN ×2 (10:45→13:30)
[2018-06-04] MEDS ORDERED: IPRATROPIUM BROMIDE 0.5 MG/2.5 ML NEB SOLUTION NEB ONE (10:45)
[2018-06-04] MEDS ORDERED: PredniSONE 20 MG TABLET PO ONE (10:45)
[2018-06-04] MEDS ORDERED: ALBUTEROL SULFATE 2.5 MG/0.5 ML NEB SOLUTION NEB ONE (10:45)
[2018-06-04] MEDS ORDERED: 0.9% SODIUM CHLORIDE 10 ML SYRINGE IVP PRN ×2 (10:45→13:30)
[2018-06-04] MEDS ORDERED: ALBUTEROL SULFATE 2.5 MG/0.5 ML NEB SOLUTION NEB PRN (13:30)
[2018-06-04] MEDS ORDERED: ZOLPIDEM TARTRATE 5 MG TABLET PO PRN (13:30)
[2018-06-04] MEDS ORDERED: MAGNESIUM HYDROXIDE SUSPENSION 30 ML UDCUP PO PRN (13:30)
[2018-06-04] MEDS ORDERED: ACETAMINOPHEN 650 MG/20.3 ML SOLUTION UDCUP PO PRN (13:30)
[2018-06-04] MEDS ORDERED: ONDANSETRON HCL 4 MG/2 ML VIAL IVP PRN (13:30)
[2018-06-04] MEDS ORDERED: BISACODYL 10 MG RECTAL RECTAL SUPPOSITORY PR PRN (13:30)
[2018-06-04] MEDS ORDERED: IPRATROPIUM BROMIDE 0.5 MG/2.5 ML NEB SOLUTION NEB PRN (13:30)
[2018-06-04] MEDS: CefTRIAXone 1 GM/DEXTROSE 50 ML IV SCH (14:41)
[2018-06-04] MEDS: ALBUTEROL SULFATE 2.5 MG/0.5 ML NEB SOLUTION NEB SCH ×3 (15:30→22:55)
[2018-06-04] MEDS: IPRATROPIUM BROMIDE 0.5 MG/2.5 ML NEB SOLUTION NEB SCH ×3 (15:30→22:54)
[2018-06-04 15:40] VITALS: BP 120/74
[2018-06-04] MEDS: HEPARIN SODIUM,PORCINE 5,000 UNITS/ML VIAL SQ SCH ×2 (16:40→23:34)
[2018-06-04 16:45] LABS: ALANINE AMINOTRANSFERASE 28 U/L (12-78); ALBUMIN 3.2 g/dL (3.4-5.0); ALKALINE PHOSPHATASE 77 U/L (46-116); ANION GAP 8 mmol/L (8-16); ASPARTATE AMINOTRANSFERASE 23 U/L (15-37); BILIRUBIN,TOTAL 0.3 mg/dL (0.1-1.0); CALCIUM, TOTAL 8.9 mg/dL (8.8-10.5); CARBON DIOXIDE 29 mmol/L (22-29); CHLORIDE 105 mmol/L (98-107); CREATININE 0.92 mg/dL (0.60-1.30); GLOMERULAR FILTR. RATE CALC > 60 mL/min (>60); GLUCOSE,RANDOM 118 mg/dL (70-110); POTASSIUM 4.8 mmol/L (3.5-5.1); SODIUM SERUM 142 mmol/L (136-145); TOTAL PROTEIN, SERUM 6.6 g/dL (6.4-8.2); UREA NITROGEN, BLOOD 11 mg/dL (7-18)
[2018-06-04] MEDS: MethylPREDNISolone SOD SUCC 125 MG/2 ML VIAL IVP SCH ×2 (19:01→23:32)
[2018-06-04 19:58] VITALS: BP 109/65
[2018-06-04] MEDS: FAMOTIDINE 20 MG TABLET PO SCH (20:36)
[2018-06-04] MEDS: DOCUSATE SODIUM 100 MG CAPSULE PO SCH (20:37)
[2018-06-04 23:25] VITALS: BP 113/61
[2018-06-05] MEDS: ALBUTEROL SULFATE 2.5 MG/0.5 ML NEB SOLUTION NEB SCH ×6 (02:20→23:03)
[2018-06-05] MEDS: IPRATROPIUM BROMIDE 0.5 MG/2.5 ML NEB SOLUTION NEB SCH ×6 (02:20→23:03)
[2018-06-05 03:58] VITALS: BP 125/76
[2018-06-05] MEDS: MethylPREDNISolone SOD SUCC 125 MG/2 ML VIAL IVP SCH ×4 (06:06→23:49)
[2018-06-05 07:34] LABS: BASOPHILS % (AUTO) 0.1 % (0.0-2.0); EOSINOPHILS % (AUTO) 0 % (1.0-6.0); HEMATOCRIT 42.8 % (41-53); HEMOGLOBIN 13.9 g/dL (13.5-17.5); LYMPHOCYTES # (AUTO) 0.5 K/uL (1.0-4.8); LYMPHOCYTES % (AUTO) 6.5 % (22.0-44.0); MEAN CORPUSCULAR HEMOGLOBIN 28.6 pg (26.0-34.0); MEAN CORPUSCULAR HGB CONC 32.5 G/dL (31.0-37.0); MEAN CORPUSCULAR VOLUME 88 fL (80-100); MONOCYTES # (AUTO) 0.1 K/uL (0.1-1.0); MONOCYTES % (AUTO) 1.8 % (2.0-9.0); NEUTROPHILS # (AUTO) 6.7 K/uL (1.8-7.7); PLATELET COUNT (AUTO) 196 K/uL (150-450); RED BLOOD CELL COUNT(AUTO) 4.86 MIL/uL (4.50-5.90); RED CELL DISTRIBUTION WIDTH 15.2 % (11.5-14.5)
[2018-06-05 07:40] LABS: NEUTROPHILS % (AUTO) 91.6 % (40.0-70.0)
[2018-06-05 07:44] LABS: ALANINE AMINOTRANSFERASE 23 U/L (12-78); ALBUMIN 3.4 g/dL (3.4-5.0); ALKALINE PHOSPHATASE 82 U/L (46-116); ANION GAP 6 mmol/L (8-16); ASPARTATE AMINOTRANSFERASE 18 U/L (15-37); BILIRUBIN,TOTAL 0.3 mg/dL (0.1-1.0); CALCIUM, TOTAL 9.3 mg/dL (8.8-10.5); CARBON DIOXIDE 32 mmol/L (22-29); CHLORIDE 103 mmol/L (98-107); CREATININE 0.84 mg/dL (0.60-1.30); GLOMERULAR FILTR. RATE CALC > 60 mL/min (>60); GLUCOSE,RANDOM 119 mg/dL (70-110); POTASSIUM 4.4 mmol/L (3.5-5.1); SODIUM SERUM 141 mmol/L (136-145); TOTAL PROTEIN, SERUM 7.2 g/dL (6.4-8.2); UREA NITROGEN, BLOOD 13 mg/dL (7-18)
[2018-06-05 09:05] VITALS: BP 137/68
[2018-06-05] MEDS: HEPARIN SODIUM,PORCINE 5,000 UNITS/ML VIAL SQ SCH ×3 (09:30→23:49)
[2018-06-05] MEDS: FAMOTIDINE 20 MG TABLET PO SCH ×2 (09:31→20:54)
[2018-06-05] MEDS: DOCUSATE SODIUM 100 MG CAPSULE PO SCH ×2 (09:32→20:54)
[2018-06-05 11:35] VITALS: BP 151/93
[2018-06-05] MEDS: CefTRIAXone 1 GM/DEXTROSE 50 ML IV SCH (14:16)
[2018-06-05] MEDS ORDERED: SODIUM CHLORIDE 0.9% 250 ML IV ONE (14:17)
[2018-06-05] MEDS: HYPROMELLOSE 0.5% 15 ML OPHTHALMIC SOLUTION OU PRN (14:19)
[2018-06-05 16:04] LABS: ABG A-A DIFF O2 43.2 mmHg (10-20.0); ABG BASE EXCESS 5.5 mmol/L (-2.0-3.0); ABG CARBOXYHEMOGLOBIN 0.8 % (0.0-1.5); ABG HCO3 28.6 mmol/L (22.0-26.0); ABG METHEMOGLOBIN 0.5 % (0.0-1.5); ABG OXYGEN SATURATION 98.1 % (95.0-98.0); ABG OXYHEMOGLOBIN 96.8 % (94.0-100.0); ABG PCO2 48 mmHg (35-45); ABG PH 7.415 (7.35-7.450); ABG TOTAL HEMOGLOBIN 13.9 G/dL (12.0-18.0); O2 DEVICE,BLOOD GAS CANNULA (ROOM AIR); PO2, ARTERIAL BG 99.8 mmHg (79.0-87.0); SITE, BLOOD GAS RT RADIAL; SOURCE, BLOOD GAS ARTERIAL; TEMPERATURE, FAHRENHEIT, BG 98.6 FAHREN (96.0-98.6)
[2018-06-05 16:05] VITALS: BP 101/63
[2018-06-05 19:49] VITALS: BP 117/62
[2018-06-05] MEDS: BUDESONIDE 0.5 MG/2 ML NEB SOLUTION NEB SCH (23:07)
[2018-06-05 23:20] VITALS: BP 122/75
[2018-06-06] MEDS: ALBUTEROL SULFATE 2.5 MG/0.5 ML NEB SOLUTION NEB SCH ×6 (02:57→23:19)
[2018-06-06] MEDS: IPRATROPIUM BROMIDE 0.5 MG/2.5 ML NEB SOLUTION NEB SCH ×6 (02:57→23:19)
[2018-06-06 04:30] VITALS: BP 107/69
[2018-06-06] MEDS: MethylPREDNISolone SOD SUCC 125 MG/2 ML VIAL IVP SCH ×3 (06:52→17:29)
[2018-06-06] MEDS ORDERED: 0.9% SODIUM CHLORIDE 5 ML NEB SOLUTION NEB ONE ×2 (07:02→19:28)
[2018-06-06 07:35] VITALS: BP 117/77
[2018-06-06] MEDS: BUDESONIDE 0.5 MG/2 ML NEB SOLUTION NEB SCH ×3 (07:55→23:19)
[2018-06-06] MEDS: DOCUSATE SODIUM 100 MG CAPSULE PO SCH ×2 (08:44→19:47)
[2018-06-06] MEDS: HEPARIN SODIUM,PORCINE 5,000 UNITS/ML VIAL SQ SCH ×2 (08:44→16:27)
[2018-06-06] MEDS: FAMOTIDINE 20 MG TABLET PO SCH ×2 (08:44→19:46)
[2018-06-06 11:47] VITALS: BP 150/82
[2018-06-06] MEDS: CefTRIAXone 1 GM/DEXTROSE 50 ML IV SCH (14:00)
[2018-06-06 15:46] VITALS: BP 134/71
[2018-06-06 19:47] VITALS: BP 105/66
[2018-06-06] MEDS: HYPROMELLOSE 0.5% 15 ML OPHTHALMIC SOLUTION OU PRN (19:51)
[2018-06-07 00:48] VITALS: BP 109/78
[2018-06-07] MEDS: MethylPREDNISolone SOD SUCC 125 MG/2 ML VIAL IVP SCH ×5 (00:59→23:44)
[2018-06-07] MEDS: HEPARIN SODIUM,PORCINE 5,000 UNITS/ML VIAL SQ SCH ×4 (00:59→23:44)
[2018-06-07] MEDS: ALBUTEROL SULFATE 2.5 MG/0.5 ML NEB SOLUTION NEB SCH ×6 (03:05→23:05)
[2018-06-07] MEDS: IPRATROPIUM BROMIDE 0.5 MG/2.5 ML NEB SOLUTION NEB SCH ×6 (03:05→23:05)
[2018-06-07 04:46] VITALS: BP 100/73
[2018-06-07 07:50] VITALS: BP 140/69
[2018-06-07] MEDS: BUDESONIDE 0.5 MG/2 ML NEB SOLUTION NEB SCH ×3 (08:01→23:09)
[2018-06-07] MEDS: FAMOTIDINE 20 MG TABLET PO SCH ×2 (08:12→20:37)
[2018-06-07] MEDS: DOCUSATE SODIUM 100 MG CAPSULE PO SCH ×2 (08:12→20:37)
[2018-06-07] MEDS: HYPROMELLOSE 0.5% 15 ML OPHTHALMIC SOLUTION OU PRN (08:17)
[2018-06-07 11:56] VITALS: BP 111/60
[2018-06-07] MEDS: CefTRIAXone 1 GM/DEXTROSE 50 ML IV SCH (14:35)
[2018-06-07 15:41] VITALS: BP 105/63
[2018-06-07 20:45] VITALS: BP 100/63
[2018-06-08] VITALS (7 sets, daily range): BP systolic 108–133; BP diastolic 68–90
[2018-06-08] MEDS: HYPROMELLOSE 0.5% 15 ML OPHTHALMIC SOLUTION OU PRN (00:05)
[2018-06-08] MEDS: IPRATROPIUM BROMIDE 0.5 MG/2.5 ML NEB SOLUTION NEB SCH ×6 (02:58→22:29)
[2018-06-08] MEDS: ALBUTEROL SULFATE 2.5 MG/0.5 ML NEB SOLUTION NEB SCH ×6 (02:58→22:29)
[2018-06-08] MEDS: MethylPREDNISolone SOD SUCC 125 MG/2 ML VIAL IVP SCH (05:30)
[2018-06-08] MEDS: BUDESONIDE 0.5 MG/2 ML NEB SOLUTION NEB SCH ×3 (07:35→22:29)
[2018-06-08] MEDS: HEPARIN SODIUM,PORCINE 5,000 UNITS/ML VIAL SQ SCH ×3 (09:02→23:38)
[2018-06-08] MEDS: DOCUSATE SODIUM 100 MG CAPSULE PO SCH ×2 (09:03→20:00)
[2018-06-08] MEDS: FAMOTIDINE 20 MG TABLET PO SCH ×2 (09:03→20:00)
[2018-06-08] MEDS: CefTRIAXone 1 GM/DEXTROSE 50 ML IV SCH (14:33)
[2018-06-08] MEDS: MethylPREDNISolone SOD SUCC 40 MG/ML VIAL IVP SCH ×2 (15:45→23:39)
[2018-06-09] MEDS: ALBUTEROL SULFATE 2.5 MG/0.5 ML NEB SOLUTION NEB SCH ×6 (03:03→23:05)
[2018-06-09] MEDS: IPRATROPIUM BROMIDE 0.5 MG/2.5 ML NEB SOLUTION NEB SCH ×6 (03:03→23:05)
[2018-06-09 03:40] VITALS: BP 129/76
[2018-06-09 07:37] VITALS: BP 130/90
[2018-06-09] MEDS: DOCUSATE SODIUM 100 MG CAPSULE PO SCH ×2 (07:51→20:09)
[2018-06-09] MEDS: FAMOTIDINE 20 MG TABLET PO SCH ×2 (07:51→20:09)
[2018-06-09] MEDS: MethylPREDNISolone SOD SUCC 40 MG/ML VIAL IVP SCH ×3 (07:51→23:45)
[2018-06-09] MEDS: HEPARIN SODIUM,PORCINE 5,000 UNITS/ML VIAL SQ SCH ×3 (08:26→23:45)
[2018-06-09] MEDS: BUDESONIDE 0.5 MG/2 ML NEB SOLUTION NEB SCH ×3 (09:53→23:05)
[2018-06-09 12:34] VITALS: BP 116/78
[2018-06-09 15:34] VITALS: BP 123/71
[2018-06-09] MEDS: HYPROMELLOSE 0.5% 15 ML OPHTHALMIC SOLUTION OU PRN (16:17)
[2018-06-09] MEDS: CefTRIAXone 1 GM/DEXTROSE 50 ML IV SCH (16:17)
[2018-06-09 19:19] VITALS: BP 139/89
[2018-06-09 20:34] LABS: EOSINOPHILS % (AUTO) 0 % (1.0-6.0); HEMATOCRIT 43.2 % (41-53); HEMOGLOBIN 13.8 g/dL (13.5-17.5); LYMPHOCYTES # (AUTO) 0.3 K/uL (1.0-4.8); LYMPHOCYTES % (AUTO) 2.2 % (22.0-44.0); MEAN CORPUSCULAR HEMOGLOBIN 28.4 pg (26.0-34.0); MEAN CORPUSCULAR HGB CONC 31.9 G/dL (31.0-37.0); MEAN CORPUSCULAR VOLUME 89 fL (80-100); MONOCYTES % (AUTO) 8.4 % (2.0-9.0); NEUTROPHILS # (AUTO) 10.8 K/uL (1.8-7.7); NEUTROPHILS % (AUTO) 89.4 % (40.0-70.0); PLATELET COUNT (AUTO) 198 K/uL (150-450); RED BLOOD CELL COUNT(AUTO) 4.86 MIL/uL (4.50-5.90); RED CELL DISTRIBUTION WIDTH 15.6 % (11.5-14.5)
[2018-06-09 20:34] LABS: ANION GAP 0 mmol/L (8-16); CALCIUM, TOTAL 9.1 mg/dL (8.8-10.5); CARBON DIOXIDE 39 mmol/L (22-29); CHLORIDE 100 mmol/L (98-107); GLOMERULAR FILTR. RATE CALC > 60 mL/min (>60); GLUCOSE,RANDOM 121 mg/dL (70-110); POTASSIUM 4.6 mmol/L (3.5-5.1); SODIUM SERUM 139 mmol/L (136-145); UREA NITROGEN, BLOOD 26 mg/dL (7-18)
[2018-06-09 20:39] LABS: ALANINE AMINOTRANSFERASE 25 U/L (12-78); ALBUMIN 3.2 g/dL (3.4-5.0); ALKALINE PHOSPHATASE 63 U/L (46-116); ASPARTATE AMINOTRANSFERASE 10 U/L (15-37); BILIRUBIN,TOTAL 0.2 mg/dL (0.1-1.0); TOTAL PROTEIN, SERUM 6.4 g/dL (6.4-8.2)
[2018-06-09 20:57] LABS: PLATELET MORPHOLOGY COMMENT NORMAL
[2018-06-09 23:59] VITALS: BP 130/74
[2018-06-10] MEDS: IPRATROPIUM BROMIDE 0.5 MG/2.5 ML NEB SOLUTION NEB SCH ×6 (03:03→23:38)
[2018-06-10] MEDS: ALBUTEROL SULFATE 2.5 MG/0.5 ML NEB SOLUTION NEB SCH ×6 (03:03→23:38)
[2018-06-10 04:55] VITALS: BP 120/75
[2018-06-10 06:33] LABS: EOSINOPHILS % (AUTO) 0 % (1.0-6.0); HEMATOCRIT 40.9 % (41-53); HEMOGLOBIN 13.3 g/dL (13.5-17.5); LYMPHOCYTES # (AUTO) 0.3 K/uL (1.0-4.8); LYMPHOCYTES % (AUTO) 2.7 % (22.0-44.0); MEAN CORPUSCULAR HEMOGLOBIN 28.8 pg (26.0-34.0); MEAN CORPUSCULAR HGB CONC 32.6 G/dL (31.0-37.0); MEAN CORPUSCULAR VOLUME 88 fL (80-100); MONOCYTES # (AUTO) 0.8 K/uL (0.1-1.0); MONOCYTES % (AUTO) 6.9 % (2.0-9.0); NEUTROPHILS # (AUTO) 10.1 K/uL (1.8-7.7); PLATELET COUNT (AUTO) 200 K/uL (150-450); RED BLOOD CELL COUNT(AUTO) 4.63 MIL/uL (4.50-5.90); RED CELL DISTRIBUTION WIDTH 15.3 % (11.5-14.5)
[2018-06-10] MEDS: HYPROMELLOSE 0.5% 15 ML OPHTHALMIC SOLUTION OU PRN (06:38)
[2018-06-10 06:52] LABS: NEUTROPHILS % (AUTO) 90.4 % (40.0-70.0)
[2018-06-10 07:00] LABS: ALANINE AMINOTRANSFERASE 21 U/L (12-78); ALBUMIN 2.9 g/dL (3.4-5.0); ALKALINE PHOSPHATASE 58 U/L (46-116); ANION GAP 1 mmol/L (8-16); ASPARTATE AMINOTRANSFERASE 11 U/L (15-37); BILIRUBIN,TOTAL 0.3 mg/dL (0.1-1.0); CARBON DIOXIDE 40 mmol/L (22-29); CHLORIDE 99 mmol/L (98-107); CREATININE 1.12 mg/dL (0.60-1.30); GLOMERULAR FILTR. RATE CALC > 60 mL/min (>60); GLUCOSE,RANDOM 121 mg/dL (70-110); POTASSIUM 4.4 mmol/L (3.5-5.1); SODIUM SERUM 140 mmol/L (136-145)
[2018-06-10 07:14] LABS: UREA NITROGEN, BLOOD 25 mg/dL (7-18)
[2018-06-10 07:26] LABS: PLATELET MORPHOLOGY COMMENT GIANT PLTS PRESENT
[2018-06-10] MEDS: BUDESONIDE 0.5 MG/2 ML NEB SOLUTION NEB SCH ×3 (07:35→23:38)
[2018-06-10 07:40] VITALS: BP 119/73
[2018-06-10] MEDS: MethylPREDNISolone SOD SUCC 40 MG/ML VIAL IVP SCH ×3 (08:45→23:07)
[2018-06-10] MEDS: FAMOTIDINE 20 MG TABLET PO SCH ×2 (08:46→19:39)
[2018-06-10] MEDS: DOCUSATE SODIUM 100 MG CAPSULE PO SCH ×2 (08:46→19:39)
[2018-06-10] MEDS: HEPARIN SODIUM,PORCINE 5,000 UNITS/ML VIAL SQ SCH ×3 (08:46→23:07)
[2018-06-10 11:30] VITALS: BP 116/73
[2018-06-10] MEDS: CefTRIAXone 1 GM/DEXTROSE 50 ML IV SCH (13:28)
[2018-06-10] MEDS ORDERED: PredniSONE 20 MG TABLET PO ONE (14:45)
[2018-06-10 15:16] VITALS: BP 137/71
[2018-06-10 19:53] VITALS: BP 131/68
[2018-06-10 23:26] VITALS: BP 113/70
[2018-06-11] MEDS: ALBUTEROL SULFATE 2.5 MG/0.5 ML NEB SOLUTION NEB SCH ×4 (02:44→14:40)
[2018-06-11] MEDS: IPRATROPIUM BROMIDE 0.5 MG/2.5 ML NEB SOLUTION NEB SCH ×4 (02:44→14:39)
[2018-06-11 05:02] VITALS: BP 123/84
[2018-06-11 06:35] LABS: BASOPHILS % (AUTO) 0.1 % (0.0-2.0); EOSINOPHILS % (AUTO) 0 % (1.0-6.0); HEMATOCRIT 40.9 % (41-53); HEMOGLOBIN 13.7 g/dL (13.5-17.5); LYMPHOCYTES # (AUTO) 0.2 K/uL (1.0-4.8); LYMPHOCYTES % (AUTO) 1.8 % (22.0-44.0); MEAN CORPUSCULAR HEMOGLOBIN 29.2 pg (26.0-34.0); MEAN CORPUSCULAR HGB CONC 33.4 G/dL (31.0-37.0); MEAN CORPUSCULAR VOLUME 87 fL (80-100); MONOCYTES # (AUTO) 0.8 K/uL (0.1-1.0); MONOCYTES % (AUTO) 6.6 % (2.0-9.0); NEUTROPHILS # (AUTO) 11.6 K/uL (1.8-7.7); PLATELET COUNT (AUTO) 218 K/uL (150-450); RED BLOOD CELL COUNT(AUTO) 4.69 MIL/uL (4.50-5.90); RED CELL DISTRIBUTION WIDTH 15.5 % (11.5-14.5)
[2018-06-11 06:58] LABS: NEUTROPHILS % (AUTO) 91.5 % (40.0-70.0)
[2018-06-11 07:09] LABS: ALANINE AMINOTRANSFERASE 22 U/L (12-78); ALBUMIN 3.1 g/dL (3.4-5.0); ALKALINE PHOSPHATASE 60 U/L (46-116); ANION GAP 1 mmol/L (8-16); ASPARTATE AMINOTRANSFERASE 9 U/L (15-37); BILIRUBIN,TOTAL 0.2 mg/dL (0.1-1.0); CARBON DIOXIDE 38 mmol/L (22-29); CHLORIDE 100 mmol/L (98-107); CREATININE 0.91 mg/dL (0.60-1.30); GLOMERULAR FILTR. RATE CALC > 60 mL/min (>60); GLUCOSE,RANDOM 121 mg/dL (70-110); POTASSIUM 4.8 mmol/L (3.5-5.1); SODIUM SERUM 139 mmol/L (136-145); TOTAL PROTEIN, SERUM 6.3 g/dL (6.4-8.2); UREA NITROGEN, BLOOD 28 mg/dL (7-18)
[2018-06-11 08:04] VITALS: BP 142/89
[2018-06-11] MEDS: BUDESONIDE 0.5 MG/2 ML NEB SOLUTION NEB SCH (08:17)
[2018-06-11] MEDS: MethylPREDNISolone SOD SUCC 40 MG/ML VIAL IVP SCH (08:24)
[2018-06-11] MEDS: FAMOTIDINE 20 MG TABLET PO SCH (08:24)
[2018-06-11] MEDS: DOCUSATE SODIUM 100 MG CAPSULE PO SCH (08:24)
[2018-06-11] MEDS: HEPARIN SODIUM,PORCINE 5,000 UNITS/ML VIAL SQ SCH (08:24)
[2018-06-11 11:00] VITALS: BP 137/87
[2018-06-11] MEDS ORDERED: PRED10 PO (11:43)
[2018-06-11] MEDS ORDERED: PRED20 PO (11:43)
[2018-06-11] MEDS: CefTRIAXone 1 GM/DEXTROSE 50 ML IV SCH (13:31)
== END 2018-06-11 15:35 | disposition home or self-care (01) | DRG 140 ==
LOC: EMS 06:28 → 5S 14:37 → 4E 06-08 22:55 → 6N 06-09 16:35
PROVIDERS: ADMIT Internal Medicine; ATTEND Internal Medicine
DX: J44.1 Chronic obstructive pulmonary disease with (acute) exacerbation (principal); J96.21 Acute and chronic respiratory failure with hypoxia; Z99.81 Dependence on supplemental oxygen; J44.0 Chronic obstructive pulmonary disease with (acute) lower respiratory infection; E78.00 Pure hypercholesterolemia, unspecified; E78.5 Hyperlipidemia, unspecified; I10 Essential (primary) hypertension; R91.1 Solitary pulmonary nodule; J20.9 Acute bronchitis, unspecified
CPT/HCPCS: 36600; 71275; 82805; 90686; 93005; 94640; G0378; J0696; J1644; J2920; J2930; J7050

== ENCOUNTER 2018-07-07 06:00 | Day surgery (SDC) | payer OTHER ==
[~2018-07-07] VITALS: Ht 170.2 cm; Wt 77.5 kg
[~2018-07-07 06:00] MED LIST changes: +PRED10 PO; +PRED20 PO
[2018-07-07] MEDS ORDERED: SODIUM CHLORIDE 0.9% 1,000 ML IV ONE ×2 (06:28→07:00)
[2018-07-07] MEDS ORDERED: MIDAZOLAM HCL 2 MG/2 ML VIAL ONE (07:38)
[2018-07-07] MEDS ORDERED: FentaNYL CITRATE-PF 100 MCG/2 ML VIAL ONE (07:39)
[2018-07-07] MEDS ORDERED: MethylPREDNISolone SOD SUCC 125 MG/2 ML VIAL IVP ONE (09:00)
[2018-07-07] MEDS ORDERED: MethylPREDNISolone SOD SUCC 125 MG/2 ML VIAL ONE (09:28)
[2018-07-07] MEDS ORDERED: ALBUTEROL SULFATE 2.5 MG/0.5 ML NEB SOLUTION NEB ONE ×2 (18:08→18:16)
[2018-07-07] MEDS ORDERED: LIDOCAINE 2% 5 ML JELLY ONE ×2 (18:08→18:16)
[2018-07-07] MEDS ORDERED: LIDOCAINE 4% 50 ML SOLUTION ONE ×2 (18:08→18:16)
[2018-07-07] MEDS ORDERED: BENZOCAINE 20% 50 MCG/SPRAY 57 GM ONE ×2 (18:08→18:16)
[2018-07-07] MEDS ORDERED: VECURONIUM BROMIDE 10 MG/VIAL ONE (18:11)
[2018-07-07] MEDS ORDERED: ETOMIDATE 2 MG/ML 10 ML VIAL ONE (18:11)
[2018-07-07] MEDS ORDERED: OXYGEN THERAPY IH SCH (20:00)
== END 2018-07-07 11:10 | disposition home or self-care (01) ==
LOC: SURGERY 06:00
PROVIDERS: ATTEND Internal Medicine Critical Care Medicine
DX: J38.4 Edema of larynx (principal); B37.0 Candidal stomatitis; I10 Essential (primary) hypertension; K21.9 Gastro-esophageal reflux disease without esophagitis; E78.5 Hyperlipidemia, unspecified; R23.3 Spontaneous ecchymoses
CPT/HCPCS: 31623; 31624; 71045; 87015; 87070; 87101; 87206; 87220; J2250; J2930; J3010; J3490 ×2; J7030